=== PATIENT | male | born 1980 | race Caucasian/White ===

== ENCOUNTER → 2018-05-08 | Outpatient (CLI) | payer BC ==
--- NOTE | 2018-05-08 12:43 | XR ---
EXAMINATION TYPE: XR chest 2V DATE OF EXAM: 05/08/2018 COMPARISON: NONE TECHNIQUE: PA and lateral views submitted. HISTORY: Cough FINDINGS: The lungs are clear and there is no pneumothorax, pleural effusion, or focal pneumonia. IMPRESSION: 1. No acute process.
== END | disposition home or self-care (01) ==
LOC: RADXRMAIN 12:25
PROVIDERS: ATTEND Internal Medicine Geriatric Medicine
DX: R04.2 Hemoptysis (principal)
CPT/HCPCS: 71046

== ENCOUNTER 2019-03-21 15:42 | Observation (INO) | payer BC ==
[2019-03-21] MEDS ORDERED: ASPIRIN 81 MG PO STA (16:40)
--- NOTE | 2019-03-21 16:41 | ED ---
General Adult HPI - General Chief complaint: Chest Pain Stated complaint: arrhythmia Time Seen by Provider: 03/21/19 16:08 Source: patient Mode of arrival: ambulatory Limitations: no limitations - History of Present Illness Initial comments: Dictation was produced using Clipik dictation software. please excuse any grammatical, word or spelling errors. Chief Complaint: 38-year-old male with no significant medical history presents with chest pressure and extremity paresthesias. History of Present Illness: She is 38-year-old male with no significant past medical history presents with chest pressure and upper extremity tingling. Patient states he has been on a diet regimen for the last 2-3 weeks. Clinically pre-workout supplementation provided by local nutrition store. He states that today after his workout he was driving when he experienced chest pain. States the chest pressure was transiently. After several minutes the sensation of paresthesias over his hands and legs came about. He states his symptoms lasted for approximately 45 minutes. Patient has any shortness of breath. Patient currently is asymptomatic. He does have family history of cardiac disease in his grandfather who had bypass at the age of 50. Patient denies his symptoms radiate to shoulders or jaw. No associated diaphoresis. The ROS documented in this emergency department record has been reviewed and confirmed by me. Those systems with pertinent positive or negative responses have been documented in the HPI. All other systems are other negative and/or noncontributory. PHYSICAL EXAM: General Impression: Alert and oriented x3, not in acute distress HEENT: Normocephalic atraumatic, extra-ocular movements intact, pupils equal and reactive to light bilaterally, mucous membranes moist. Cardiovascular: Heart regular rate and rhythm, S1&S2 audible, no murmurs, rubs or gallops Chest: Lungs clear to auscultation bilaterally, no rhonchi, no wheeze, no rales Abdomen: Bowel sounds present, abdomen soft, non-tender, non-distended, no organomegaly Musculoskeletal: Pulses present and equal in all extremities, no peripheral e ibrahima Motor: no focal deficits noted Neurological: CN II-XII grossly intact, no focal motor or sensory deficits noted Skin: Intact with no visualized rashes Psych: Normal affect and mood ED course: 38-year-old male presents with chest pressure and paresthesias. Vital signs upon arrival shows heart rate of 11, rest of vital signs within acceptable limits. 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 She consented EKG to Dr. Tillman. Dr. Tillman notified me reports that they wanted taken for elective cardiac cath urgently given that he has recommended is scheduled. Labs have not been resulted yet and are still pending. Patient given aspirin and heparin. There is in my opinion no clear indication for catheterization at this time given that patient is symptom-free EKG does not show STEMI. Patient is agreeable. EKG interpretation: Ventricular rate 93, normal sinus rhythm, NJ interval 152, Q RS 92, QTc 455. No NJ prolongation, no QTC prolongation, no ST or T-wave changes noted. No old EKG for comparison. Overall, this EKG is unremarkable - Related Data Home Medications Medication Instructions Recorded Confirmed [facility] Pre Workout 1 tab PO BID 03/21/19 03/21/19 Allergies Allergy/AdvReac Type Severity Reaction Status Date / Time Penicillins Allergy Rash/Hives Verified 03/21/19 16:58 Review of Systems ROS Statement: Those systems with pertinent positive or pertinent negative responses have been documented in the HPI. ROS Other: All systems not noted in ROS Statement are negative. Past Medical History Past Medical History: No Reported History History of Any Multi-Drug Resistant Organisms: None Reported Past Surgical History: No Surgical Hx Reported Past Psychological History: No Psychological Hx Reported Smoking Status: Never smoker Past Alcohol Use History: Occasional Past Drug Use History: None Reported General Exam Limitations: no limitations Course Vital Signs 03/21/19 16:05 Temperature 98.1 F Pulse Rate 101 H Respiratory 20 Rate Blood Pressure 160/95 Medical Decision Making - Lab Data Result diagrams: 03/21/19 13:54 Lab Results 03/21/19 Range/Units 13:54 WBC 13.0 H (3.8-10.6) k/uL RBC 5.26 (4.30-5.90) m/uL Hgb 15.4 (13.0-17.5) gm/dL Hct 46.4 (39.0-53.0) % MCV 88.2 (80.0-100.0) fL MCH 29.3 (25.0-35.0) pg MCHC 33.3 (31.0-37.0) g/dL RDW 14.0 (11.5-15.5) % Plt Count 244 (150-450) k/uL Neutrophils % 78 % Lymphocytes % 16 % Monocytes % 4 % Eosinophils % 1 % Basophils % 0 % Neutrophils # 10.1 H (1.3-7.7) k/uL Lymphocytes # 2.1 (1.0-4.8) k/uL Monocytes # 0.6 (0-1.0) k/uL Eosinophils # 0.1 (0-0.7) k/uL Basophils # 0.0 (0-0.2) k/uL Disposition Clinical Impression: Chest pain Disposition: ADMITTED IP TO THIS HOSP Condition: Fair Referrals: Alejandro Cunningham MD [Primary Care Provider] - 1-2 days Decision Time: 17:14
[2019-03-21 17:05] LABS: Basophils % (A) 0 %; Eosinophils # (A) 0.1 k/uL (0-0.7); Eosinophils % (A) 1 %; HCT 46.4 % (39.0-53.0); HGB 15.4 gm/dL (13.0-17.5); Lymphocytes # (A) 2.1 k/uL (1.0-4.8); Lymphocytes % (A) 16 %; MCH 29.3 pg (25.0-35.0); MCHC 33.3 g/dL (31.0-37.0); MCV 88.2 fL (80.0-100.0); Monocytes # (A) 0.6 k/uL (0-1.0); Monocytes % (A) 4 %; Neutrophils # (A) 10.1 k/uL (1.3-7.7); Neutrophils % (A) 78 %; Platelet Count 244 k/uL (150-450); RBC 5.26 m/uL (4.30-5.90)
[2019-03-21] MEDS ORDERED: LIDOCAINE 1% INJ 10MG/ML (20 ML MDV) ONE (17:10)
[2019-03-21] MEDS ORDERED: VERAPAMIL 2.5 MG/ML 2 ML AMP ONE (17:10)
[2019-03-21] MEDS ORDERED: HEPARIN SODIUM,PORCINE 5,000 UNIT/ML 1 ML VIAL SQ ONE (17:13)
[2019-03-21 17:14] LABS: Partial Thromboplastin Time 24.3 sec (22.0-30.0); Prothrombin Time 10.3 sec (9.0-12.0)
[2019-03-21] MEDS ORDERED: NALOXONE 0.4 MG/ML 1 ML VIAL IV PRN (17:14)
[2019-03-21 17:15] LABS: ALT 49 U/L (21-72); AST 30 U/L (17-59); Albumin 4.8 g/dL (3.5-5.0); Alkaline Phosphatase 73 U/L (38-126); Anion Gap 12 mmol/L; Blood Urea Nitrogen 17 mg/dL (9-20); Calcium 9.8 mg/dL (8.4-10.2); Carbon Dioxide 23 mmol/L (22-30); Chloride 104 mmol/L (98-107); Glucose 92 mg/dL (74-99); Potassium 4.3 mmol/L (3.5-5.1); Sodium 139 mmol/L (137-145); Total Bilirubin 0.5 mg/dL (0.2-1.3)
[2019-03-21] MEDS ORDERED: SODIUM CHLORIDE 0.9% 1,000 ML IV SCH ×2 (17:15→18:30)
[2019-03-21] MEDS ORDERED: HEPARIN SODIUM,PORCINE 5,000 UNIT/ML 1 ML VIAL IV ONE (17:17)
--- NOTE | 2019-03-21 17:37 | XR ---
EXAMINATION TYPE: XR chest 2V DATE OF EXAM: 03/21/2019 COMPARISON: 05/08/2018 HISTORY: Chest pain TECHNIQUE: Frontal and lateral views of the chest are obtained. FINDINGS: Heart and mediastinum are normal. Lungs are clear. Diaphragm is normal. Bony thorax appear s normal. Pulmonary vascularity is normal. IMPRESSION: Normal chest. No change.
[2019-03-21] MEDS ORDERED: LIDOCAINE 1% INJ 10MG/ML (20 ML MDV) SQ ONE (17:57)
[2019-03-21] MEDS ORDERED: MIDAZOLAM (PF) 2 MG/2 ML VIAL IV ONE ×2 (17:57→18:05)
[2019-03-21] MEDS ORDERED: IV FLUID CONTINUATION 1,000 ML IV ONE (17:59)
[2019-03-21] MEDS ORDERED: VERAPAMIL SYRINGE (5 MG/10 ML) INTRAARTER ONE ×2 (18:00→18:11)
[2019-03-21] MEDS ORDERED: HEPARIN SODIUM 1,000 UN/ML (10ML VL) IV ONE (18:03)
[2019-03-21] MEDS ORDERED: IOPAMIDOL-370 125ML BTL INJ ONE (18:11)
[2019-03-21] MEDS ORDERED: RX INFO: IV CONTRAST WAS GIVEN 1 EACH MISC MISCELLANE PRN (18:18)
[2019-03-21 18:56] VITALS: BMI 42.4
--- NOTE | 2019-03-21 21:24 | P.CRDCN ---
History of Present Illness History of present illness: This is Dr. Tillman dictating a consult on this patient The patient was interviewed and examined by me IMPRESSION / ASSESSMENT: Chest heaviness/tightness associated with nausea and a feeling of a knot-like sensation in the chest following exercise lasting for about an hour By the time the patient arrived in the emergency room his pain was almost gone. Twelve-lead ECG was normal Chest discomfort worrisome for unstable angina, post exercise PLAN: Coronary angiography to delineate the epicardial coronary anatomy today. Discussed Dr. Vallecillo discussed with the patient HPI Patient was exercising today and after exercise during the recovery period he started experiencing a vague discomfort in the chest. His was in the upper chest. As time went on the discomfort became worse spreading all across the chest and he started having numbness and tingling list in the left arm. He felt as if there was a knot in his chest associated with heaviness in the also felt quite nauseous and sweaty. He came to the emergency room here and underwent a 12-lead ECG. By the time he came here the pain was gone. He only complained of fatigue. Twelve-lead ECG shows sinus rhythm normal [place] narrow QRS normal ST segments ROS: No fever chills or rigors, no cough, phlegm or expectoration, + nausea, no vomiting or diarrhea, no hematuria, dysuria, no musculoskeletal complaints, no strokes or seizures, no skin lesions. EXAMINATION: 150-91 mmHg afebrile, normal respirations pain-free when I examined him Normal heart rates Normal breath sounds no rhonchi no crackles Abdomen soft nontender Number heart sounds no murmurs or gallops or rub REVIEW OF LABS, ECG & MEDICAL DATA twelve-lead ECG as above Family history of per usual coronary artery disease No personal history of diabetes Denies hypertension but blood pressure is elevated He takes some high energy tablets to give him more energy Past Medical History Past Medical History: No Reported History History of Any Multi-Drug Resistant Organisms: None Reported Past Surgical History: No Surgical Hx Reported Past Anesthesia/Blood Transfusion Reactions: No Reported Reaction Past Psychological History: No Psychological Hx Reported Smoking Status: Never smoker Past Alcohol Use History: Occasional Past Drug Use History: None Reported Medications and Allergies Home Medications Medication Instructions Recorded Confirmed Type c Pre Workout 1 tab PO BID 03/21/19 03/21/19 History Allergies Allergy/AdvReac Type Severity Reaction Status Date / Time Penicillins Allergy Rash/Hives Verified 03/21/19 16:58 Physical Exam Vitals: Vital Signs Temp Pulse Pulse Resp BP BP Pulse Ox 03/21/19 20:00 18 03/21/19 18:45 98.3 F 82 18 128/72 96 03/21/19 17:25 98 18 158/91 100 03/21/19 16:05 98.1 F 101 H 20 160/95 Intake and Output 03/21/19 03/21/19 03/21/19 06:59 14:59 22:59 Intake Total 100 Balance 100 Intake: IV 100 Other: Voiding Method Toilet Weight 130.272 kg Results 03/21/19 13:54 03/21/19 13:54 Cardiac Enzymes 03/21/19 03/21/19 Range/Units 13:54 13:54 AST 30 (17-59) U/L Troponin I <0.012 (0.000-0.034) ng/mL Coagulation 03/21/19 Range/Units 13:54 PT 10.3 (9.0-12.0) sec APTT 24.3 (22.0-30.0) sec Lipids 03/21/19 Range/Units 13:54 Triglycerides 217 H (<150) mg/dL Cholesterol 223 H (<200) mg/dL HDL Cholesterol 47 (40-60) mg/dL CBC 03/21/19 Range/Units 13:54 WBC 13.0 H (3.8-10.6) k/uL RBC 5.26 (4.30-5.90) m/uL Hgb 15.4 (13.0-17.5) gm/dL Hct 46.4 (39.0-53.0) % Plt Count 244 (150-450) k/uL Comprehensive Metabolic Panel 03/21/19 Range/Units 13:54 Sodium 139 (137-145) mmol/L Potassium 4.3 (3.5-5.1) mmol/L Chloride 104 (98-107) mmol/L Carbon Dioxide 23 (22-30) mmol/L BUN 17 (9-20) mg/dL Creatinine 0.86 (0.66-1.25) mg/dL Glucose 92 (74-99) mg/dL Calcium 9.8 (8.4-10.2) mg/dL AST 30 (17-59) U/L ALT 49 (21-72) U/L Alkaline Phosphatase 73 (38-126) U/L Total Protein 8.0 (6.3-8.2) g/dL Albumin 4.8 (3.5-5.0) g/dL Current Medications Generic Name Dose Route Start Last Admin Trade Name Freq PRN Reason Stop Dose Admin Sodium Chloride 1,000 mls @ 20 mls/hr 03/21/19 17:15 03/21/19 18:24 Saline 0.9% IV Not Given .Q24H SHAE Sodium Chloride 1,000 mls @ 100 mls/hr 03/21/19 18:30 03/21/19 19:43 Saline 0.9% IV 03/21/19 22:31 100 mls/hr .Q10H SHAE Administration Miscellaneous Information 1 each 03/21/19 18:18 Rx Info: Iv Contrast Was Given MISCELLANE 03/23/19 18:18 DAILY PRN Per Protocol Naloxone HCl 0.2 mg 03/21/19 17:14 Narcan IV Q2M PRN Opioid Reversal Intake and Output 03/21/19 03/21/19 03/21/19 06:59 14:59 22:59 Intake Total 100 Balance 100 Intake: IV 100 Other: Voiding Method Toilet Weight 130.272 kg Patient Weight 03/22/19 06:59 Weight 130.272 kg 03/21/19 13:54 03/21/19 13:54
[2019-03-22 00:08] LABS: Hemoglobin A1C 5.1 % (4.0-6.0)
--- NOTE | 2019-03-22 07:57 | AN ---
ANGIOGRAPHY REPORT DATE OF SERVICE: 03/21/2019. PERFORMING PHYSICIAN: Calvin Vallecillo MD, Can Striper. PROCEDURE PERFORMED: 1. Selective right and left coronary angiogram. 2. Left heart catheterization. INDICATION: This is a pleasant 38-year-old gentleman who presented to the emergency room complaining of chest discomfort, seen by Dr. Tillman and who recommended proceeding with coronary angiogram because of ongoing chest discomfort. APPROACH: Right radial artery. COMPLICATION: None. LEVEL OF SEDATION: Moderate with sedation length of 14 minutes. PROCEDURE DESCRIPTION: After obtaining an informed consent, the patient was brought to the cardiac quality assurance/r&d lab technician. The right radial artery was cannulated using micropuncture technique and a micropuncture wire passed easily, then I placed a 6-[place] sheath in the right radial artery. After that, I gave the patient 2 mg of verapamil IA and 10,000 units of heparin IV. Selective right and left coronary angiogram was performed using JR4 and JL3.5 catheters. Left heart catheterization was performed using the JR4 catheter which flipped into the LV, then I did pullback across aortic valve. The procedure was completed without any complication. CORONARY ANGIOGRAM: 1. The right coronary artery is a large caliber vessel. It is a dominant vessel. It is angiographically normal. It distally bifurcates into PDA and PLV branches, both are angiographically normal. 2. The left main is angiographically normal. It bifurcates into left circumflex and left anterior descending artery. 3. The left circumflex is a large caliber vessel. It is a nondominant vessel. The left circumflex is angiographically normal. In the midportion, it gives rise into a large OM branch which bifurcates into 2 separate branches. Both appeared to be angiographically normal. 4. The LAD, the proximal LAD is angiographically normal. It gives rise into a large diagonal branch which bifurcates into 2 subbranches and the first diagonal is angiographically normal. The mid LAD is normal and the LAD distally is normal as well. HEMODYNAMICS: The left ventricular end-diastolic pressure was 12 mmHg without significant gradient across the aortic valve. CONCLUSION: 1. Normal coronary angiogram. 2. Normal left ventricular end-diastolic pressure. POSTPROCEDURE MANAGEMENT: 1. Medical treatment. 2. Possible discharge in next 24 hours. MMODL / IJN: [id number] /
--- NOTE | 2019-03-22 07:57 | LTR ---
DATE OF SERVICE: 03/21/2019 RE: Santhosh Mckeon Dear Dr. Cunningham; Mr. Santhosh Mckeon presented to the emergency room at [facility] with chest discomfort and underwent a heart catheterization which revealed normal coronaries. Thank you for allowing us to participate in his care and please do not hesitate to call if you have any question or concern. Sincerely, MD SHEBA Villegas / BON: [id number] /
[2019-03-22 08:19] LABS: Appearance,Urine Clear (Clear); Bilirubin,Urine Negative (Negative); Blood,Urine Negative (Negative); Color,Urine Light Yellow; Glucose,Urine (UA) Negative (Negative); Ketones,Urine Negative (Negative); Leukocyte Esterase,Urine Negative (Negative); Nitrite,Urine Negative (Negative); PH, Urine 6.5 (5.0-8.0); Protein,Urine Negative (Negative); Specific Gravity,Urine 1.011 (1.001-1.035); Urobilinogen,Urine <2.0 mg/dL (<2.0)
[2019-03-22 09:00] VITALS: RESP 18
--- NOTE | 2019-03-22 10:37 | P.PN ---
Subjective This is a pleasant 38 showed male with no significant previous medical history. He underwent cardiac catheterization via the right radial artery yesterday evening with Dr. Vallecillo revealing normal coronary arteries and normal LVEDP. He is seen and examined sitting up in bed in no acute distress. He denies any further symptoms of chest discomfort. Right radial artery puncture site soft, nontender, no evidence of hematoma or bleeding. Distal pulses are palpated. He denies any pain or numbness and tingling of the right hand or arm. Blood pressure 133/85 heart rate 64 afebrile maintaining oxygen saturation on room air. GENERAL: Well-appearing, well-nourished and in no acute distress. NECK: Supple without JVD or thyromegaly. LUNGS: Breath sounds clear to auscultation bilaterally. Respiration equal and unlabored. No wheezes, rales or rhonchi. HEART: Regular rate and rhythm without murmurs, rubs or gallops. S1 and S2 heard. EXTREMITIES: Normal range of motion, no edema. No clubbing or cyanosis. Peripheral pulses intact. Right radial artery puncture site soft, nontender, no ecchymosis, no hematoma and no bleeding. ASSESSMENT Chest heaviness/tightness associated with nausea following exercise, cardiac catheterization performed last evening was normal. PLAN Stable for discharge from a cardiac perspective. Follow up in the office with Dr. Tillman on Monday prior to returning to work. Nurse Practitioner note has been reviewed, I agree with a documented findings and plan of care. Patient was seen and examined. Objective - Vital Signs Vital signs: Vital Signs Temp 97.6 F 03/22/19 08:00 Pulse 64 03/22/19 08:00 Resp 18 03/22/19 08:00 BP 133/85 03/22/19 08:00 Pulse Ox 96 03/22/19 08:00 Intake & Output 03/21/19 03/22/19 03/22/19 18:59 06:59 18:59 Intake Total 100 Balance 100 Weight 130.272 kg Intake: IV 100 Other: Voiding Method Toilet Toilet # Voids 1 - Labs CBC & Chem 7: 03/21/19 13:54 03/21/19 13:54 Labs: Abnormal Lab Results - Last 24 Hours (Table) 03/21/19 03/21/19 Range/Units 13:54 13:54 WBC 13.0 H (3.8-10.6) k/uL Neutrophils # 10.1 H (1.3-7.7) k/uL Triglycerides 217 H (<150) mg/dL Cholesterol 223 H (<200) mg/dL LDL Cholesterol, Calc 133 H (0-99) mg/dL
[2019-03-22 12:28] VITALS: BP 131/82; PULSE 66; TEMP 98.4
--- NOTE | 2019-03-22 13:33 | P.HPIM ---
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 Interestingly enough his lipid panel was slightly elevated I discussed with the patient the need to go on statin however he did want to try diet and exercise he has been tried on a regular and formal exercise program for the past month about 5 days a week however he has been using one of the supplement that he buys from [facility] his cold thermogenic and I believe it has Hydroxycut and he was advised against the supplements and to continue with current exercise program along with increase his protein intake and vegetables and cut down on his red meat as well as the fat in the diet and he will follow-up with us in the office as an outpatient in a week from now. Review of Systems Constitutional: Denies anorexia, Denies chronic headaches, Denies lethargy, Denies malaise, Denies weakness, Denies weight gain, Denies weight loss Eyes: denies blurred vision, denies bulging eye, denies decreased vision, denies diplopia Ears, nose, mouth and throat: Denies dysphagia, Denies neck lump, Denies swelling in mouth, Denies swelling in throat, Denies sore throat Cardiovascular: Reports chest pain, Reports lightheadedness, Reports shortness of breath, Denies decreased exercise tolerance, Denies dyspnea on exertion, Denies high blood pressure, Denies irregular heart beat, Denies palpitations, De nies rapid heart beat, Denies syncope Respiratory: Denies congestion, Denies cough, Denies hemoptysis, Denies sleep apnea, Denies snoring Gastrointestinal: Reports indigestion, Denies bloating, Denies heartburn, Denies hematochezia, Denies melena, Denies nausea, Denies vomiting Genitourinary: Denies dysuria, Denies impotence Musculoskeletal: Denies myalgias Musculoskeletal: absent: ankle pain, ankle stiffness, ankle swelling, elbow pain, elbow stiffness, elbow swelling, foot pain, foot stiffness, foot swelling, hand pain, hand stiffness, hand swelling, hip pain, hip stiffness, hip swelling, knee pain, knee stiffness, knee swelling, shoulder pain, shoulder stiffness, shoulder swelling, wrist pain, wrist stiffness, wrist swelling Integumentary: Denies pruritus, Denies rash Neurological: Reports numbness, Denies weakness Psychiatric: Reports anxiety, Denies depression Endocrine: Denies fatigue, Denies weight change Past Medical History Past Medical History: No Reported History, Hyperlipidemia History of Any Multi-Drug Resistant Organisms: None Reported Past Surgical History: No Surgical Hx Reported Past Anesthesia/Blood Transfusion Reactions: No Reported Reaction Past Psychological History: No Psychological Hx Reported Smoking Status: Never smoker Past Alcohol Use History: Occasional Past Drug Use History: None Reported - Past Family History Mother Family Medical History: No Reported History (Mother 60-year-old no major medical problems.) Father Family Medical History: Blood Disorder (Father is 62-year-old with history of multiple myeloma.) Brother(s) Family Medical History: No Reported History (Patient has one brother no major medical problems.) Sister(s) Family Medical History: No Reported History (Patient has one sister no major medical problems.) Daughter(s) Family Medical History: No Reported History (Patient has one daughter no major medical problems.) Son(s) Family Medical History: No Reported History (Patient has one son no major medical problems.) Medications and Allergies Allergies Allergy/AdvReac Type Severity Reaction Status Date / Time Penicillins Allergy Rash/Hives Verified 03/21/19 16:58 Physical Exam Vitals: Vital Signs Temp Pulse Pulse Resp BP BP Pulse Ox 03/21/19 18:45 98.3 F 82 18 128/72 96 03/21/19 17:25 98 18 158/91 100 03/21/19 16:05 98.1 F 101 H 20 160/95 Intake and Output 03/21/19 03/21/19 03/21/19 06:59 14:59 22:59 Intake Total 100 Balance 100 Intake: IV 100 Other: Weight 130.272 kg - Constitutional General appearance: average body habitus, no acute distress - EENT Eyes: anicteric sclerae, EOMI, PERRLA, no ptosis, no scleral icterus, normal appearance ENT: hearing grossly normal, NA/AT, normal oropharynx, no thrush Ears: bilateral: normal - Neck Neck: no lymphadenopathy, normal ROM, no rigidity, no stridor, no thyromegaly Carotids: bilateral: upstroke normal Thyroid: bilateral: normal size - Respiratory Respiratory: bilateral: CTA, negative: diminished, dullness, rales, rhonchi, wheezing, prolonged expiration - Cardiovascular Rhythm: regular Heart sounds: normal: S1, S2 Abnormal Heart Sounds: no systolic murmur, no S3 Gallop, no S4 Gallop - Gastrointestinal General gastrointestinal: normal bowel sounds, soft, no splenomegaly, no tenderness, no umbilical hernia, no ventral hernia - Integumentary Integumentary: normal, normal turgor - Neurologic Neurologic: CNII-XII intact - Musculoskeletal Musculoskeletal: gait normal, strength equal bilaterally - Psychiatric Psychiatric: A&O x's 3, appropriate affect, intact judgment & insight Results CBC & Chem 7: 03/21/19 13:54 03/21/19 13:54 Labs: Abnormal Lab Results - Last 24 Hours (Table) 03/21/19 Range/Units 13:54 WBC 13.0 H (3.8-10.6) k/uL Neutrophils # 10.1 H (1.3-7.7) k/uL Thrombosis Risk Factor Assmnt - DVT/VTE Prophylaxis DVT/VTE Prophylaxis: Mechanical Prophylaxis ordered, Low risk, early ambulation encouraged - Choose All That Apply Any of the Below Risk Factors Present?: No Other Risk Factors: No Thrombosis Risk Factor Assessment Level: Very Low Risk Assessment and Plan Assessment: Assessment and plan: 1. Chest pain noncardiac. Patient underwent left heart catheter physician that showed normal coronary arteries and normal LV function, this is likely related to the supplement that he is taking, it was recommended for the patient to stop the thermogenic and/or any product that has Hydroxycut and it, he was advised to continue with diet and exercise and weight loss increase his vegetable and fruit intake decrease fat intake, follow-up with us in the office as an outpatient. 2. Hyperlipidemia. Patient was counseled about the use of statin to reduce the risk of CAD down the line he wanted to try to diet and exercise for the next 2 month and he'll repeat his lipid panel again if continues to be elevated he will start Lipitor 20 mg orally once every day. 3. Overweight. Diet and exercise and weight loss. 4. Possible anxiety. Monitor as an outpatient. 5. Observation. 6. Patient is full code.
--- NOTE | 2019-03-22 13:42 | P.DS ---
Providers Date of admission: 03/21/19 17:33 Expected date of discharge: 03/22/19 Attending physician: Reina Sales Consults: 03/21/19 17:16 Consult Physician Routine Consulting Provider: Se Tillman Consult Reason/Comments: chest pain Do you want consulting provider notified?: Yes Primary care [facility] Course: This is a 38-year-old male one of Dr. Cunningham with a previous medical history significant for hyperlipidemia as well as overweight, presented to the emergency department at [facility] and after significant chest pressure associated with a knot in his stomach he stated that he was exercising for at least an hour and half admission where he works at the [employer], and he went back home and took a shower he felt dizzy and clammy and he felt extreme chest pain and pressure associated with dizziness and lightheadedness he had the same time felt numbness in both upper extremities and both feet, he called his works in the [employer] and she told him to come to the emergency department for evaluation, 12-lead EKG did show normal sinus rhythm without acute ST-T wave changes, laboratory evaluation were negative, patient was seen in consultation by cardiology was recommended for the patient to go for left heart catheterization for possible epicardial anatomy, his heart catheterization came back normal, patient was admitted to the hospital as an observation overnight as to be discharged home tomorrow morning. Interestingly enough his lipid panel was slightly elevated I discussed with the patient the need to go on statin however he did want to try diet and exercise he has been tried on a regular and formal exercise program for the past month about 5 days a week however he has been using one of the supplement that he buys from [facility] his cold thermogenic and I believe it has Hydroxycut and he was advised against the supplements and to continue with current exercise program along with increase his protein intake and vegetables and cut down on his red meat as well as the fat in the diet and he will follow-up with us in the office as an outpatient in a week from now. 03/22: Patient denies having any chest pain, shortness of breath. He has been cleared by cardiology for discharge home. Triglycerides 217, cholesterol 223, LDL 133, HDL 47. TSH 1.620. Urinalysis negative. Regarding patient's dyslipidemia, he plans to continue exercise and diet to address first and does not want to start statins at this time. Patient will follow-up with Dr. Galo for further advice. Patient has been advised to avoid [facility] diet supplement. The patient was cleared for protein supplementation though. Discharge diagnoses: 1. Chest pain noncardiac, most likely related to diet supplement, rule out anxiety as possible etiology. 2. Hyperlipidemia. 3. Overweight. 4. Possible anxiety. Discharge plan: Home Impression and plan of care have been directed as dictated by the signing physician. Melvi Mills nurse practitioner acting as scribe for signing physician. Patient Condition at Discharge: Good Plan - Discharge Summary Discharge Rx Participant: No New Discharge Prescriptions: Discontinued [employer] Pre Workout 1 tab PO BID Follow up Appointment(s)/Referral(s): Se Tillman MD [STAFF PHYSICIAN] - 04/03/19 2:45 pm (Monday morning will see Teresa in the office for a site check and return to work clearance. Patient is to be off work until he is seen in follow up in the office Monday. ) Alejandro Cunningham MD [Primary Care Provider] - 1 Week Discharge Disposition: HOME SELF-CARE
== END 2019-03-22 13:30 | disposition home or self-care (01) ==
LOC: EC 15:42 → 3SCARD 17:33 → 1SOBS 18:15
PROVIDERS: ADMIT Internal Medicine; ATTEND Internal Medicine
DX: R07.89 Other chest pain (principal); E78.5 Hyperlipidemia, unspecified; R20.2 Paresthesia of skin; R06.02 Shortness of breath; R42 Dizziness and giddiness; R23.1 Pallor; R20.0 Anesthesia of skin; R11.0 Nausea; R61 Generalized hyperhidrosis; E66.3 Overweight; Z68.41 Body mass index [BMI] 40.0-44.9, adult; Z79.899 Other long term (current) drug therapy; Z88.0 Allergy status to penicillin; Z80.7 Family history of other malignant neoplasms of lymphoid, hematopoietic and related tissues; Z82.49 Family history of ischemic heart disease and other diseases of the circulatory system; Z83.2 Family history of diseases of the blood and blood-forming organs and certain disorders involving the immune mechanism
CPT/HCPCS: 96374; 99285; 36415; 93005; 93458; 80053; 80061; 84443; 83735; 84484; 85025; 85610; 85730; 81003; 83036; 71046; G0378 ×3; C1769; C1894; J1644 ×2; J2001; Q9967; J2250

== ENCOUNTER → 2020-01-16 | Outpatient (CLI) | payer BC ==
--- NOTE | 2020-01-16 10:44 | XR ---
EXAMINATION TYPE: XR chest 2V DATE OF EXAM: 01/16/2020 COMPARISON: 03/21/2019 INDICATION: Multiple exposure TECHNIQUE: Frontal and lateral views of the chest are obtained. FINDINGS: The heart size is normal. The pulmonary vasculature is normal. The lungs are clear. No suspicious consolidations are evident. No cavitary lesions are evident. IMPRESSION: 1. No acute pulmonary process.
== END | disposition home or self-care (01) ==
LOC: RADXRMAIN 10:26
PROVIDERS: ATTEND Nurse Practitioner Family
DX: R05 Cough (principal); Z77.120 Contact with and (suspected) exposure to mold (toxic)
CPT/HCPCS: 71046

== ENCOUNTER 2020-02-12 14:40 | Emergency (ER) | payer BC ==
[2020-02-12 14:49] VITALS: BP 157/103; PULSE 86; RESP 18; TEMP 97.9
[2020-02-12] MEDS ORDERED: DIPH,PERTUS(ACELL)TETVAC-LF 0.5 ML VIAL IM ONE (15:07)
[2020-02-12] MEDS ORDERED: TOPICAL SKIN ADHESIVE 1 EACH AMP TOPICAL ONE (15:07)
--- NOTE | 2020-02-12 15:42 | ED ---
Wound/Laceration HPI - General Chief Complaint: Wound/Laceration Stated Complaint: Finger Lac Time Seen by Provider: 02/12/20 14:52 Source: patient Limitations: no limitations - History of Present Illness Initial Comments: 39 year male presenting for left ring finger laceration. Patient states yesterday around 5 PM he was using a knife to cut up venison when he cut his left ring finger on the ventral aspect. He states is pretty superficial however continued to bleed throughout the day today he was doing his daughter in for evaluation and thought that he could have his finger looked as well. Patient denies any limitations in range of motion or decreased strength. Patient denies any surrounding redness. Patient unsure of last tetanus. Patient denies any other areas of injury remaining review systems negative upon arrival patient appears well signs of acute distress. - Related Data Allergies Allergy/AdvReac Type Severity Reaction Status Date / Time Penicillins Allergy Rash/Hives Verified 03/21/19 16:58 Review of Systems ROS Statement: Those systems with pertinent positive or pertinent negative responses have been documented in the HPI. ROS Other: All systems not noted in ROS Statement are negative. Past Medical History Past Medical History: Hyperlipidemia History of Any Multi-Drug Resistant Organisms: None Reported Past Surgical History: No Surgical Hx Reported Past Anesthesia/Blood Transfusion Reactions: No Reported Reaction Past Psychological History: No Psychological Hx Reported Smoking Status: Never smoker Past Alcohol Use History: Occasional Past Drug Use History: None Reported - Past Family History Mother Family Medical History: No Reported History (Mother 60-year-old no major medical problems.) Father Family Medical History: Blood Disorder (Father is 62-year-old with history of multiple myeloma.) Brother(s) Family Medical History: No Reported History (Patient has one brother no major medical problems.) Sister(s) Family Medical History: No Reported History (Patient has one sister no major medical problems.) Daughter(s) Family Medical History: No Reported History (Patient has one daughter no major medical problems.) Son(s) Family Medical History: No Reported History (Patient has one son no major medical problems.) General Exam - General Exam Comments Initial Comments: General: The patient is awake and alert, in no distress, and does not appear acutely ill. Eye: Pupils are equal, round and reactive to light, extra-ocular movements are intact. No nystagmus. There is normal conjunctiva bilaterally. No signs of icterus. Musculoskeletal: Normal ROM, no tenderness at the MCP DIP and PIP joints all 5 digits of the left hand including the left ring finer--full strength no limitations. Sensation intact. Radial pulses equal bilaterally 2+. Skin flap on the pad of the left 4th digit ventral aspect distal to DIP joint. No deep laceration deformity. Clean, no FB. Neurological: A&O x 3. CN II-XII intact grossly, There are no obvious motor or sensory deficits. Coordination appears grossly intact. Speech is normal. Skin: Skin is warm and dry and no rashes or lesions are noted. Psychiatric: Cooperative, appropriate mood & affect, normal judgment. Limitations: no limitations Course Vital Signs 02/12/20 14:47 Temperature 97.9 F Pulse Rate 86 Respiratory 18 Rate Blood Pressure 157/103 O2 Sat by Pulse 95 Oximetry Medical Decision Making - Medical Decision Making Tetanus updated. Superficial skin flap/laceration was cleansed with iodine, water. applied thin amount of exofin but leaving some areas open given laceration occurred 22 hours ago. Patient is aware of risk of infection with closure. Discussed signs of infection, exofin care and return parameters. patient discharged appearing well. Disposition Clinical Impression: Skin tear, Finger laceration Disposition: HOME SELF-CARE Condition: Good Instructions (If sedation given, give patient instructions): Skin Adhesive Care (ED) Additional Instructions: Please use medication as discussed. Please follow-up with family doctor in the next 2 days. Please return to emergency room if the symptoms increase or worsen or for any other concerns. Is patient prescribed a controlled substance at d/c from ED?: No Referrals: Alejandro Cunningham MD [Primary Care Provider] - 1-2 days Time of Disposition: 15:42
== END 2020-02-12 16:15 | disposition home or self-care (01) ==
LOC: EC 14:40
DX: S61.215A Laceration without foreign body of left ring finger without damage to nail, initial encounter (principal); Z88.0 Allergy status to penicillin; Z23 Encounter for immunization; W26.0XXA Contact with knife, initial encounter; Y93.89 Activity, other specified
CPT/HCPCS: 12001; 90471; 90715; 99282

== ENCOUNTER 2020-07-07 15:40 | Emergency (ER) | payer BC ==
[2020-07-07 15:45] VITALS: RESP 18
[2020-07-07] MEDS ORDERED: IBUPROFEN 800 MG TAB PO STA (16:13)
--- NOTE | 2020-07-07 16:25 | XR ---
EXAMINATION TYPE: XR ankle complete RT DATE OF EXAM: 07/07/2020 CLINICAL HISTORY: Right ankle pain after rolling injury TECHNIQUE: Frontal, lateral and oblique images of the right ankle are obtained. COMPARISON: None. FINDINGS: There is no acute fracture/dislocation evident in the right ankle. The ankle mortise appe ars within normal limits. There is diffuse soft tissue swelling about the ankle, worse laterally. IMPRESSION: Marked ankle soft tissue swelling, worse laterally. No acute fracture or dislocation in t he right ankle.
--- NOTE | 2020-07-07 16:39 | ED ---
Lower Extremity Injury HPI - General Chief Complaint: Extremity Injury, Lower Stated Complaint: Rt ankle injury Time Seen by Provider: 07/07/20 15:46 Source: patient, RN notes reviewed Mode of arrival: wheelchair Limitations: no limitations - Related Data Previous Rx's Medication Instructions Recorded HYDROcodone/APAP 7.5-325MG [[place] 1 tab PO Q6HR PRN 3 Days #12 tab 07/07/20 7.5-325] Ibuprofen [Motrin] 800 mg PO Q6HR #30 tab 07/07/20 Allergies Allergy/AdvReac Type Severity Reaction Status Date / Time Penicillins Allergy Rash/Hives Verified 07/07/20 15:45 Review of Systems ROS Statement: Those systems with pertinent positive or pertinent negative responses have been documented in the HPI. ROS Other: All systems not noted in ROS Statement are negative. Past Medical History Past Medical History: Hyperlipidemia History of Any Multi-Drug Resistant Organisms: None Reported Past Surgical History: No Surgical Hx Reported Past Anesthesia/Blood Transfusion Reactions: No Reported Reaction Past Psychological History: No Psychological Hx Reported Smoking Status: Never smoker Past Alcohol Use History: Occasional Past Drug Use History: None Reported - Past Family History Mother Family Medical History: No Reported History (Mother 60-year-old no major medical problems.) Father Family Medical History: Blood Disorder (Father is 62-year-old with history of multiple myeloma.) Brother(s) Family Medical History: No Reported History (Patient has one brother no major medical problems.) Sister(s) Family Medical History: No Reported History (Patient has one sister no major medical problems.) Daughter(s) Family Medical History: No Reported History (Patient has one daughter no major medical problems.) Son(s) Family Medical History: No Reported History (Patient has one son no major medical problems.) General Exam Limitations: no limitations Course Vital Signs 07/07/20 15:41 Temperature 98 F Pulse Rate 94 Respiratory 18 Rate Blood Pressure 144/93 O2 Sat by Pulse 97 Oximetry Medical Decision Making - Medical Decision Making X-rays negative for acute fracture. Patient arrived ankle sprain. Conservative treatment will be started. Disposition Clinical Impression: Right ankle sprain Disposition: HOME SELF-CARE Condition: Stable Instructions (If sedation given, give patient instructions): Ankle Sprain (ED) Additional Instructions: Please return to the Emergency Department if symptoms worsen or any other concerns. Prescriptions: Ibuprofen [Motrin] 800 mg PO Q6HR #30 tab HYDROcodone/APAP 7.5-325MG [[place] 7.5-325] 1 tab PO Q6HR PRN 3 Days #12 tab PRN Reason: Pain Is patient prescribed a controlled substance at d/c from ED?: Yes When asked, does pt state using other controlled substances?: No If prescribed controlled substance>3 days was MAPS reviewed?: Prescribed <3 Days If opioid is for acute pain is fill amount 7 days or less?: Yes If Rx opioid, was Start Talking consent form obtained?: Yes Referrals: Alejandro Cunningham MD [Primary Care Provider] - 1-2 days Bartolo Grimse MD [STAFF PHYSICIAN] - 1-2 days Time of Disposition: 16:35
[2020-07-07 17:10] VITALS: BP 136/80; PULSE 82; TEMP 97.3
== END 2020-07-07 17:10 | disposition home or self-care (01) ==
LOC: EC 15:40
DX: S93.401A Sprain of unspecified ligament of right ankle, initial encounter (principal); Z88.0 Allergy status to penicillin; X50.1XXA Overexertion from prolonged static or awkward postures, initial encounter; Y93.53 Activity, golf
CPT/HCPCS: 99283

== ENCOUNTER 2021-03-17 10:21 | Emergency (ER) | payer BC ==
--- NOTE | 2021-03-17 10:56 | ED ---
URI HPI - General Chief Complaint: Upper Respiratory Infection Stated Complaint: Covid+cough/fever/sob/coughing up blood Time Seen by Provider: 03/17/21 10:32 Source: patient, RN notes reviewed Mode of arrival: ambulatory Limitations: no limitations - History of Present Illness Initial Comments: This a 40-year-old male presents emergency Department chief complaint of cold lid. Patient states that he's been sick for approximately 9 days. Patient states that he tested positive. Patient states is heard sided productive cough states is coughing so hard he felt that some specks of blood came out. He did have some emesis. He states she's had continuation of fevers and chills body aches no leg pain or leg swelling no neck stiffness. - Related Data Previous Rx's Medication Instructions Recorded HYDROcodone/APAP 7.5-325MG [[place] 1 tab PO Q6HR PRN 3 Days #12 tab 07/07/20 7.5-325] Ibuprofen [Motrin] 800 mg PO Q6HR #30 tab 07/07/20 Allergies Allergy/AdvReac Type Severity Reaction Status Date / Time Penicillins Allergy Rash/Hives Verified 03/17/21 10:22 Review of Systems ROS Statement: Those systems with pertinent positive or pertinent negative responses have been documented in the HPI. ROS Other: All systems not noted in ROS Statement are negative. Past Medical History Past Medical History: No Reported History Additional Past Medical History / Comment(s): pt states "they yell at me about my BP" History of Any Multi-Drug Resistant Organisms: None Reported Past Surgical History: No Surgical Hx Reported Past Anesthesia/Blood Transfusion Reactions: No Reported Reaction Past Psychological History: No Psychological Hx Reported Smoking Status: Never smoker Past Alcohol Use History: Occasional Past Drug Use History: None Reported - Past Family History Mother Family Medical History: No Reported History (Mother 60-year-old no major medical problems.) Father Family Medical History: Blood Disorder (Father is 62-year-old with history of multiple myeloma.) Brother(s) Family Medical History: No Reported History (Patient has one brother no major medical problems.) Sister(s) Family Medical History: No Reported History (Patient has one sister no major medical problems.) Daughter(s) Family Medical History: No Reported History (Patient has one daughter no major medical problems.) Son(s) Family Medical History: No Reported History (Patient has one son no major medical problems.) General Exam Limitations: no limitations General appearance: alert, in no apparent distress Head exam: Present: atraumatic, normocephalic, normal inspection ENT exam: Present: normal exam, normal oropharynx, mucous membranes moist Neck exam: Present: normal inspection, full ROM. Absent: tenderness, meningismus, lymphadenopathy Respiratory exam: Present: normal lung sounds bilaterally. Absent: respiratory distress, wheezes, rales, rhonchi, stridor Cardiovascular Exam: Present: regular rate, normal rhythm, normal heart sounds. Absent: systolic murmur, diastolic murmur, rubs, gallop, clicks GI/Abdominal exam: Present: soft, normal bowel sounds. Absent: distended, tenderness, guarding, rebound, rigid Course Vital Signs 03/17/21 10:22 Temperature 98.6 F Pulse Rate 97 Respiratory 18 Rate Blood Pressure 171/129 O2 Sat by Pulse 99 Oximetry Medical Decision Making - Medical Decision Making Patient's is positive for cold-like, patient has x-ray shows evidence of pneumonia patient had small specks of blood related to his coughing. Patient's vital he is stable receive monoclonal antibodies and discharged. Disposition Clinical Impression: COVID-19 Disposition: HOME SELF-CARE Condition: Stable Instructions (If sedation given, give patient instructions): Coronavirus Disease 2019 (COVID-19) Additional Instructions: Please return to the Emergency Department if symptoms worsen or any other concerns. Is patient prescribed a controlled substance at d/c from ED?: No Referrals: Alejandro Cunningham MD [Primary Care Provider] - 1-2 days Time of Disposition: 11:47
--- NOTE | 2021-03-17 11:20 | XR ---
EXAMINATION TYPE: XR chest 2V DATE OF EXAM: 03/17/2021 COMPARISON: NONE TECHNIQUE: PA and lateral views submitted. HISTORY: Cough FINDINGS: The lungs are clear and there is no pneumothorax, pleural effusion, or focal pneumonia. Coarsened in terstitium with patchy left upper lobe infiltrate. IMPRESSION: 1. Interstitial pneumonia with patchy left upper lobe infiltrate..
[2021-03-17] MEDS ORDERED: BAMLANIVIMAB (EUA) 700 MG, ETESEVIMAB (EUA) 1,400 MG in SODIUM CHLORIDE 0.9% 50 ML IVPB ONE (11:45)
[2021-03-17] MEDS ORDERED: SODIUM CHLORIDE 0.9% 50 ML IVPB ONE (11:45)
[2021-03-17] MEDS ORDERED: KETOROLAC 15 MG/ML 1 ML VIAL IVP STA (11:48)
[2021-03-17] MEDS ORDERED: SODIUM CHLORIDE 0.9% 1,000 ML IV ONE (11:48)
[2021-03-17 12:25] VITALS: RESP 16
[2021-03-17 12:44] VITALS: BP 148/86; PULSE 88; TEMP 98.2
== END 2021-03-17 14:06 ==
LOC: PROCWHC3 10:21 → EC 10:21 → EDSTATUS 12:13 → PROCWHC3 14:06 → EDSTATUS 14:07
DX: U07.1 COVID-19 (principal)
CPT/HCPCS: 99284; 96374; 96361; 71046; J1885; Q0245; M0245

== ENCOUNTER → 2022-07-29 | Outpatient (CLI) | payer BC ==
[2022-07-29 20:27] LABS: Gliadin AB IgA, Deaminated NEGATIVE (NEGATIVE); Gliadin AB IgA, Unit 1.5 U/mL; Gliadin AB IgG, Deaminated NEGATIVE (NEGATIVE); Gliadin AB IgG, Unit <0.4 U/mL
== END | disposition home or self-care (01) ==
LOC: LABWHC1 12:32
PROVIDERS: ATTEND Internal Medicine Gastroenterology
DX: K52.9 Noninfective gastroenteritis and colitis, unspecified (principal)
CPT/HCPCS: 36415; 83516; 85652; 86140

== ENCOUNTER 2022-08-12 07:18 | Day surgery (SDC) | payer BC ==
[2022-08-10 14:49] VITALS: BMI 36.9
[~2022-08-12 07:18] MED LIST: LACTATED RINGERS 1,000 ML IV SCH; LIDOCAINE 1% (10MG/ML) FOR IV START INTRADERMA PRN
[2022-08-12 07:53] VITALS: RESP 16; TEMP 96.7
[2022-08-12] MEDS ORDERED: PROPOFOL 10 MG/ML 20 ML VIAL IV ONE (08:40)
--- NOTE | 2022-08-12 08:57 | P.PCN ---
Date of Procedure: 08/12/22 Procedure(s) Performed: BRIEF HISTORY: Patient is a 42-year-old pleasant white male scheduled for an elective colonoscopy as a part of evaluation of chronic diarrhea for the last 5- 10 years duration. PROCEDURE PERFORMED: Colonoscopy with random biopsy. PREOPERATIVE DIAGNOSIS: Chronic diarrhea 5-10 years duration. IV sedation per Anesthesia. PROCEDURE: After informed consent was obtained, the patient, was brought into the endoscopy unit. IV sedation was administered by Anesthesia under continuous monitoring. Digital rectal examination was normal. Initially the Olympus CF-160 flexible video colonoscope was then inserted in the rectum, gradually advanced into the cecum without any difficulty. Careful examination was performed as the scope was gradually being withdrawn. Ileocecal valve and the appendiceal orifice were visualized and appeared normal. Prep was excellent. Mucosa of the cecum, ascending colon, transverse colon, descending colon, sigmoid colon, and rectum appeared normal. Random biopsies were done from ascending and descending colon to rule out microscopic/collagenous colitis Retroflexion was performed in the rectum and no lesions were seen. The patient tolerated the procedure well. IMPRESSION: Normal-appearing colon from rectum to cecum with no evidence of colorectal neoplasia . RECOMMENDATIONS: Findings of this examination were discussed with the patient as well as her family. He was advised to follow with the biopsy results. He will use [id number] Imodium as needed. He will be seen in office in 3-4 weeks..
[2022-08-12 09:15] VITALS: BP 122/77; PULSE 61
== END 2022-08-12 09:30 | disposition home or self-care (01) ==
LOC: ORWHC2ENDO 07:18
PROVIDERS: ATTEND Internal Medicine Gastroenterology
DX: K52.9 Noninfective gastroenteritis and colitis, unspecified (principal); Z88.0 Allergy status to penicillin; Z87.891 Personal history of nicotine dependence
CPT/HCPCS: 88305; 45380; J2704

== ENCOUNTER → 2023-03-20 | Outpatient (CLI) | payer BC ==
[2023-03-20 17:03] LABS: HCT 46.1 % (39.6-50.0); HGB 15.2 g/dL (13.0-17.0); MCH 30.3 pg (27.0-32.0); MCV 91.8 fL (80.0-97.0); NRBC Per 100 WBC 0 /100 WBCS (0.0-0.0); Platelet Count 216 X 10*3/uL (140-440); RBC 5.02 X 10*6/uL (4.40-5.60); RDW 12.1 % (11.5-14.5); WBC 10.29 X 10*3/uL (4.50-10.00)
[2023-03-20 17:11] LABS: ALT 22 U/L (10-49); AST 17 U/L (14-35); African American GFR (CKD) 115.7 (60.0-200.0); Albumin 4.4 g/dL (3.8-4.9); Albumin/Globulin Ratio 1.76 (1.60-3.17); Alkaline Phosphatase 65 U/L (41-126); BUN/Creat Ratio 16.12 Ratio (12.00-20.00); Blood Urea Nitrogen 15.3 mg/dL (9.0-27.0); Calcium 9.5 mg/dL (8.7-10.3); Carbon Dioxide 24.9 mmol/L (20.0-27.5); Chloride 102 mmol/L (96-109); Chol/HDL Ratio 3.86 Ratio; Globulin 2.5 g/dL (1.6-3.3); Glucose 92 mg/dL (70-110); LDL Cholesterol,Calculated 124.1 mg/dL (0.0-131.0); Non-African American GFR(CKD) 99.9 (60.0-200.0); Potassium 4.3 mmol/L (3.5-5.5); Sodium 139 mmol/L (135-145); VLDL Calculation 17.36 mg/dL (5.00-40.00)
== END | disposition home or self-care (01) ==
LOC: LABWHC1 08:56
PROVIDERS: ATTEND Optometrist
DX: E66.9 Obesity, unspecified (principal)
CPT/HCPCS: 36415; 80053; 80061; 83036; 84153; 84402; 84403; 84439; 84443; 84481; 85027; 86140

== ENCOUNTER → 2023-08-25 | Outpatient (CLI) | payer BC ==
--- NOTE | 2023-08-26 13:56 | MR ---
EXAMINATION TYPE: MR knee LT wo con DATE OF EXAM: 08/25/2023 COMPARISON: NONE HISTORY: Left knee pain and swelling for 5 months after hitting it. TECHNIQUE: Multiplanar, multisequence images of the knee is performed without IV contrast. FINDINGS: MEDIAL MENISCUS: Oblique increased signal posterior horn extending to inferior articular surface with adjacent posterior parameniscal cyst formation. LATERAL MENISCUS: Anterior and posterior horns are intact without tear. CRUCIATE LIGAMENTS: The anterior and posterior cruciate ligaments are intact and unremarkable. COLLATERAL LIGAMENTS: The medial collateral ligament and lateral collateral ligament complex are inta ct and unremarkable. EXTENSOR MECHANISM: Visualized quadriceps and patellar tendons are intact. EFFUSION: No significant suprapatellar joint effusion. POPLITEAL CYST: No popliteal/grove cyst. TRICOMPARTMENT SPACES: Mild tricompartment joint space loss. No significant spurring. CARTILAGE: Tricompartmental articular cartilage is preserved. BONE MARROW SIGNAL: No focal abnormal marrow signal is appreciated. OTHER: No additional significant abnormality is appreciated. IMPRESSION: Oblique full-thickness tear posterior horn of medial meniscus otherwise fairly unremarkab le study.
== END | disposition home or self-care (01) ==
LOC: RADMRIMAIN 20:45
PROVIDERS: ATTEND Orthopaedic Surgery Sports Medicine
DX: S83.242A Other tear of medial meniscus, current injury, left knee, initial encounter (principal); S80.02XD Contusion of left knee, subsequent encounter

== ENCOUNTER → 2024-06-14 | Outpatient (CLI) | payer BC ==
[2024-06-14 18:05] LABS: Follicle Stimulating Hormone 4.9 mIU/mL; Luteinizing Hormone 4.8 mIU/mL
== END | disposition home or self-care (01) ==
LOC: LABWHC1 08:57
PROVIDERS: ATTEND Internal Medicine Geriatric Medicine
DX: E29.1 Testicular hypofunction (principal)
CPT/HCPCS: 36415; 83001; 83002; 84403